=== PATIENT | female | born 1995 | race Caucasian/White ===

== ENCOUNTER → 2016-11-09 | Day surgery (SDC) | payer BC ==
[2016-10-30 11:04] VITALS: Ht 174 cm; Wt 61.4 kg
--- NOTE | 2016-11-06 08:25 | HISTORY & PHYSICAL EXAMINATION ---
DATE OF ADMISSION: 11/09/2016 The patient is for surgery on 11/09/2016. CHIEF COMPLAINT: High-grade cervical dysplasia. HISTORY OF PRESENT ILLNESS: The patient is a 21-year-old white female, 1, para 1, who was found to have low grade KATIE on Pap smear. On colposcopic biopsy, she has TERRY 2. The patient desires treatment of the dysplasia. We have discussed options of no treatment at this time which would mean that she would need to have pap smear and colposcopy done again in 6 months. We have discussed risks and benefits of various methods of treatment. Again, despite her age and desire for future , she wishes to proceed with treatment at this time. PAST MEDICAL HISTORY: ALLERGIES: None known. MEDICATIONS: The patient takes 09/25 control pills. SURGERY: She has undergone appendectomy. In addition, she has had oral surgery. ILLNESSES: The patient reports high cholesterol. FAMILY HISTORY: Her mother had a cancer of the tongue. Her father has had a myocardial infarction. Her paternal grandmother has a history of thyroid disease. SOCIAL HISTORY: The patient denies smoking cigarettes or drinking alcohol. PHYSICAL EXAMINATION: VITAL SIGNS: Blood pressure 110/66, height 5 feet 8-1/2 inches, weight 139.4. HEENT: Grossly within normal limits. NECK: Supple without masses. CHEST: Her lungs are clear. HEART: Regular rate and rhythm. No murmurs, gallops or rubs. ABDOMEN: Soft and nontender with no masses. PELVIC: External genitalia normal. Vagina pink and stimulated. Cervix pink and closed with no lesions visible. On colposcopic exam, however, there is marked exoversion of her cervix. Uterus within normal limit size, nontender, adnexa nontender with no masses palpable. EXTREMITIES: No cyanosis, clubbing or edema. 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 PLAN: The patient is for loop electrosurgical excision procedure with removal of abnormal tissue from the cervix. We have discussed the risks of infection, bleeding, damage to surrounding structures, risk of cervical incompetence and risk of cervical scarring. We have also discussed treatment options of cryosurgery of the cervix which I do not think would adequately treat it. We have also discussed conization of the cervix which in my opinion would remove too large a portion of her cervix. The patient wishes to proceed with treatment rather than opt for continued followup. MTDD
[~2016-11-09] VITALS: Ht 174 cm; Wt 61.4 kg
[~2016-11-09] MED LIST: ATROPINE SULFATE 0.1 MG/ML 5ML SYR IV PRN; BCPILLS PO; DEXAMETHASONE SOD INJ 4 MG/ML VIAL ONE; EpHEDrine SULFATE INJ 50 MG/ML AMP IV PRN; FENTANYL CITRATE INJ 50 MCG/1 ML 2 ML VIAL IV PRN; FENTANYL CITRATE INJ 50 MCG/1 ML 2 ML VIAL ONE; FERRIC SUBSULFATE 8 GM VIAL ONE; FLUMAZENIL 0.1 MG/1 ML 10 ML VIAL IV PRN; IBUPROFEN 600 MG TAB PO PRN; IODINE SOLN STRONG 14 ML ONE; KETOROLAC TROMETHAMINE 30 MG/ML VIAL ONE; LABETALOL HCL IV 5 MG/ML 20ML IV PRN; LACTATED RINGER'S 1000ML 1,000 ML IV SCH; LIDOCAINE HCL 2% 2 ML VIAL (20MG/ML) ONE; LIDOCAINE/EPINEPHRINE 1% INJ 50 ML VIAL ONE; MEPERIDINE HCL 25 MG/ML CARP IV PRN; MIDAZOLAM HCL 1 MG/ML 2ML VIAL ONE; NALOXONE HCL 0.4 MG/1 ML VIAL/CARP IV PRN; ONDANSETRON INJ 2 MG/ML 2 ML VIAL IV PRN; ONDANSETRON INJ 2 MG/ML 2 ML VIAL ONE; PHENYLEPHRINE 100MCG/ML 5ML SYR IV PRN; PROPOFOL IV EMULSION 10 MG/ML 20 ML VIAL IV ONE; SODIUM CHLORIDE 0.9% 1000ML 1,000 ML IV SCH
--- NOTE | 2016-11-09 06:57 | History & Physical Bridge - SC ---
H&P Re-Evaluation Bridge Note: I have examined the patient, reviewed the History & Physical and in the interval since the performance of the History & Physical I have noted the following changes of clinical significance: No changes noted
--- NOTE | 2016-11-09 07:37 | [facility] Post Operative Brief Note ---
Immediate Operative Summary Operative Date Nov 09, 2016. Pre-Operative Diagnosis Cervical Intraepithelial Neoplasia II Post-Operative Diagnosis Same with pathology pending Procedure(s) Performed Loop Electrosurgical Excision Procedure of Cervix Surgeon Dr. Pablo Frederick [place] Tanner Surgeon(s) None Estimated Blood Loss 20cc Findings See dictated note. Specimens A. LEEP Central Cervix--open at 12 o'clock B. LEEP Lateral Edges C. LEEP Endocervix Complication(s) None Disposition Recovery Room / PACU
--- NOTE | 2016-11-09 07:47 | Discharge Instructions-SurgCtr ---
Discharge Instructions Visit Reason for Visit: Cervical Intraepithelial Neoplasia 2 Discharge Goals Goal(s): Diagnostic testing, Therapeutic intervention Activity Recommendations Activity Limitations: per Instructions/Follow-up section Anesthesia . Post Anesthesia Instructions: If you have had General Anesthesia or IV Sedation: * Do not drive today. * Resume driving when surgeon permits. * Do not make important decisions or sign legal documents today. * Call surgeon for: 1. Temperature elevations greater than 101 degrees F. 2. Uncontrollable pain. 3. Excessive bleeding. 4. Persistent nausea and vomiting. 5. Medication intolerance (nausea, vomiting or rash). * For nausea and vomiting use only clear liquids such as: tea, soda, bouillon until nausea subsides, then gradually increase diet as tolerated. * If you have any concerns or questions, call your surgeon's office. If physician is unavailable and it is an emergency, call 911 or go to the nearest emergency room. . Instructions / Follow-Up Instructions / Follow-Up ACTIVITY RECOMMENDATIONS: Normal activity the day after procedure with the following exceptions/ limitations: 1. No strenuous activity for 2-3 days. 2. Nothing in vagina until cleared by physician. 3. No heavy lifting greater for three days. 4. No tampons, douches or intercourse until cleared by physician. 5. You may drive when you feel capable after 24 hours. 6. You may bath or shower. 7. You may climb stairs without restrictions. 8. Call the office at [phone] if you have persistent severe cramping, heavy bleeding or foul discharge. Keep your postop appointment with Dr Frederick. Diet Recommendations Home Diet: resume previous diet Procedures Procedures Performed: Loop Electrosurgical Excision Procedure of Cervix Pending Studies Studies pending at discharge: yes List of pending studies: We will call you with the pathology report. Medical Emergencies . Who to Call and When: Medical Emergencies: If at any time you feel your situation is an emergency, please call 911 immediately. . Non-Emergent Contact Non-Emergency issues call your: [employer] Range Attendant Call Non-Emergent contact if: temperature is above 100.5, your pain is not controlled, your pain is worsening, your pain is concerning you . Past History Medical & Surgical History: (1) Cervical intraepithelial neoplasia grade 2 . "Provider Documentation" section prepared by Katrin Frederick.
--- NOTE | 2016-11-09 07:54 | Medical Student: [facility] ---
Immediate Operative Summary Operative Date Nov 09, 2016. Pre-Operative Diagnosis Cervical Intraepithelial Neoplasia II Post-Operative Diagnosis same with pathology pending Procedure(s) Performed Loop Electrosurgical Excision Procedure of Cervix Surgeon Dr. Frederick Line Service Technician Surgeon(s) none Estimated Blood Loss 20 cc Findings Normal vulva and vagina. Lugol's applied and Cervical Exoversion appreciated. Specimens A) Central Cervix open at 12 o'clock B) Lateral Edges of LEEP C) Endocervix Anesthesia LMA Complication(s) None Disposition Recovery Room / PACU
[2016-11-09 08:10] VITALS: TEMP 36.9
[2016-11-09 08:27] VITALS: BP 106/49; PULSE 51; O2SAT 100
--- NOTE | 2016-11-09 08:30 | Anesthesia Progress Nt - [facility] ---
Anesthesia Post Op Note Date & Time Nov 09, 2016 at 08:30 Vital Signs Pain Intensity: 0 Vital Signs Past 12 Hours Date Time Temp Pulse Resp B/P Pulse Ox O2 Delivery O2 Flow Rate FiO2 11/09/16 08:27 51 16 106/49 100 Room Air 11/09/16 08:10 36.9 52 16 98/67 100 Room Air 11/09/16 08:03 36.9 61 18 11/09/16 08:03 57 18 100 11/09/16 08:00 107/58 11/09/16 07:58 53 17 11/09/16 07:58 56 17 100 11/09/16 07:55 111/60 11/09/16 07:53 70 16 100 11/09/16 07:53 71 16 11/09/16 07:50 116/81 11/09/16 07:48 77 18 100 11/09/16 07:48 75 18 11/09/16 07:46 110/56 11/09/16 07:43 64 21 11/09/16 07:43 74 21 100 11/09/16 07:42 87/42 11/09/16 07:40 91/39 11/09/16 07:38 51 15 11/09/16 07:38 51 15 100 11/09/16 07:35 95/44 11/09/16 07:34 82/42 11/09/16 07:34 36.4 50 12 95/44 100 Mask 6 11/09/16 06:24 36.8 68 16 105/65 100 Room Air Notes Mental Status: alert / awake / arousable, participated in evaluation Pt Amnestic to Procedure: Yes Nausea / Vomiting: adequately controlled Pain: adequately controlled Airway Patency, RR, SpO2: stable & adequate BP & HR: stable & adequate Hydration State: stable & adequate Anesthetic Complications: no major complications apparent
--- NOTE | 2016-11-09 08:45 | OPERATIVE REPORT ---
DATE OF OPERATION: 11/09/2016 PREOPERATIVE DIAGNOSIS: Cervical intraepithelial neoplasia 2. POSTOPERATIVE DIAGNOSIS: Same with pathology pending. PROCEDURE: LEEP of cervix. SURGEON: Dr. Katrin Frederick. ANESTHESIA: General. HAND BULLDOZER: Dr. Sanchez. PROCEDURE IN DETAIL: The patient was taken to the operating room where general anesthesia was administered. After an adequate level was obtained, she was placed in dorsal lithotomy position. Vulva, vagina and cervix were prepped with Betadine solution. The patient was draped. Bladder was drained with a straight catheter. Weighted speculum was placed in the posterior fornix of the vagina. The cervix was painted with Lugol's solution. The cervix was then injected with 8 mL of 1% lidocaine with epinephrine. A large loop was then used to excise a central portion of the cervix. In order to remove all of the unstained areas, a few small pieces of cervix were taken from the lateral edges of that first cut. These were also sent to pathology. Endocervix was then obtained with a smaller wire loop. Hemostasis was obtained with ball tip cautery. Monsel's solution was then applied to the cervix as well for hemostasis. The patient tolerated the procedure well. She was taken to the recovery room in good condition. ESTIMATED BLOOD LOSS: No more than 20 mL I attest to the content of the Intraoperative Record and any orders documented therein. Any exceptions are noted below. MTDD
== END | disposition home or self-care (01) ==
LOC: X.SURG 06:08
PROVIDERS: ATTEND Obstetrics & Gynecology
DX: N87.1 Moderate cervical dysplasia (principal); Z80.0 Family history of malignant neoplasm of digestive organs; N72 Inflammatory disease of cervix uteri